=== PATIENT | female | born 1965 | race Caucasian/White ===

== ENCOUNTER → 2018-05-19 | Outpatient (CLI) | payer OTHER ==
--- NOTE | 2018-05-19 16:40 | Diagnostic Imaging Report ---
EXAMINATION: Bone mineral density study. COMPARISON: None. HISTORY: Osteoporosis DISCUSSION: Evaluation of the left hip and lumbar spine was performed utilizing a DEXA Hologic bone densitometer. The study is technically adequate. The left hip total bone mineral density is 0.933 gm/cm2, the T-score is -0.1, and the Z-score is 0.6. The left hip femoral neck bone mineral density is 0.833 gm/cm2, the T-score is -0.1, and the Z-score is 0.9. The lumbar spine total bone mineral density is 1.251 gm/cm2, the T-score is 1.9, and the Z-score is 2.9. IMPRESSION: 1. WHO classification of normal bone mineral density for the left hip with no increased risk of fracture. 2. WHO classification of normal bone mineral density for the lumbar spine with no increased risk of fracture. The patient's fracture risk is compared to an age-matched control. Medical evaluation for secondary causes of low bone bone mineral density may be appropriate. Correlate clinically for the necessity and timing of the next bone mineral density study. National Osteoporosis Foundation recommendations: Initiate therapy to reduce fracture risk in postmenopausal women with -BMD t-scores below -2.0 by central DXA with no risk factors -BMD t-scores below -1.5 by central DXA with one or more risk factors (first deg relative with hip fracture, prior personal fracture, low body weight, smoking) -A prior vertebral or hip fracture AACE (Clinical Endocrinology) recommends treating the following: Postmenopausal women who have osteoporosis as diagnosed by fragility fractures or t scores -2.5 or below Postmenopausal women who have risk factors (including fh of hip fracture, low body weight, smoking, risk of falling, high bone turnover, advancing age) and borderline low BMD T scores of -1.5 or below Adequate intake of calcium (at least 1200mg/day) and vitamin D (400-800 IU/day). Regular weight bearing and muscle - strengthening exercises Avoid smoking and excessive alcohol Signed by: Dr. Narayan Kelley M.D. on 05/19/2018 4:37 PM
--- NOTE | 2018-06-04 08:45 | Diagnostic Imaging Report ---
#[id number] - MGSCRBIL #BILATERAL DIGITAL SCREENING MAMMOGRAM WITH CAD: 05/19/2018 CLINICAL: Routine screening. Comparison is made to exams dated: 04/23/2016 mammogram, 10/14/2014 mammogram and 07/20/2013 mammogram - [facility]. Current study contains 4 films. There are scattered fibroglandular elements in both breasts. Current study was also evaluated with a Computer Aided Detection (CAD) system. There is a benign intramammary node in both breasts. There also is a benign calcification in the left breast. No significant masses, calcifications, or other findings are seen in either breast. There has been no significant interval change. IMPRESSION: BENIGN There is no mammographic evidence of malignancy. A 1 year screening mammogram is recommended. The patient will be notified by letter of the results. Migue amato/inderjit:06/03/2018 13:13:21 Corn Detasseler: Candida CERRATO(Qiana)(Abby), [facility] letter sent: Compared to Prior B9 Mammogram BI-RADS: 2 Benign
== END ==
LOC: MAMMO 12:35
PROVIDERS: ATTEND Obstetrics & Gynecology
DX: Z12.31 Encounter for screening mammogram for malignant neoplasm of breast (principal); Z78.0 Asymptomatic menopausal state
CPT/HCPCS: 77067; 77080